=== PATIENT | female | born 1950 | race Caucasian/White ===

== ENCOUNTER 2018-01-04 22:50 | Emergency (ER) | payer SELFPAY ==
[~2018-01-04] VITALS: Ht 167.6 cm; Wt 61.4 kg
[2018-01-04 22:50] VITALS: BP 160/87
[2018-01-04 23:03] LABS: GLUCOSE,POINT OF CARE 106 MG/DL (70-110)
[2018-01-04] MEDS ORDERED: HTN medication PO (23:09)
== END 2018-01-05 00:30 | disposition left against medical advice (07) ==
LOC: EMS 22:52
DX: F32.9 Major depressive disorder, single episode, unspecified (principal); Z53.21 Procedure and treatment not carried out due to patient leaving prior to being seen by health care provider